=== PATIENT | male | born 1995 | race Caucasian/White ===

== ENCOUNTER 2016-11-25 20:56 | Emergency (ER) | payer SELFPAY ==
[~2016-11-25 20:56] MED LIST: MAGNESIUM PO; PROGRAF PO
--- NOTE | 2016-11-25 21:00 | NUR ---
PATIENT LEFT WITHOUT BEING SEEN BY DR. DE LA ROSA. NO FURTHER CARE PROVIDED FOR PATIENT.
--- NOTE | 2016-11-25 21:00 | NUR ---
Blanquita friedman in [facility] - 11/26/16 at 0235 by SARAH PATIENT LEFT WITHOUT BEING SEEN BY DR. PALMER. NO FURTHER CARE PROVIDED FOR PATIENT.
== END 2016-11-25 21:00 | disposition left against medical advice (07) ==
LOC: MED 20:56
DX: Z53.21 Procedure and treatment not carried out due to patient leaving prior to being seen by health care provider (principal); N50.9 Disorder of male genital organs, unspecified

== ENCOUNTER 2016-12-05 16:39 | Inpatient (IN) | payer MEDICAID ==
[~2016-12-05] VITALS: Ht 182.9 cm; Wt 94.3 kg
[2016-12-05 16:41] VITALS: BP 132/85
--- NOTE | 2016-12-05 16:45 | NUR ---
Patient ambulated to bed 03.
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
--- NOTE | 2016-12-05 17:00 | NUR ---
Dr. Gipson evaluating patient at bedside.
--- NOTE | 2016-12-05 17:10 | NUR ---
XRAY at bedside.
[2016-12-05] MEDS ORDERED: NACL 0.9% 1,000 ML IV ONE ×2 (17:30→19:30)
[2016-12-05] MEDS ORDERED: KETOROLAC 30 MG/ML VIAL IVP ONE (17:30)
[2016-12-05] MEDS ORDERED: ONDANSETRON 4 MG/2 ML VIAL IVP ONE ×2 (17:30→19:05)
[2016-12-05] MEDS ORDERED: ACETYLCYSTEINE 20% (200 MG/ML) 200 MG/ML VIAL PO ONE (18:55)
--- NOTE | 2016-12-05 19:02 | NUR ---
UNABLE TO GIVE REPORT TO JOVANI BRAGG AT THIS TIME COUNTING MEDS
--- NOTE | 2016-12-05 19:15 | NUR ---
UNABLE TO GIVE REPORT AT THIS TIME RN UNAVAILABLE
--- NOTE | 2016-12-05 19:23 | NUR ---
UNABLE TO GIVE REPORT AT THIS TIME RN UNAVAILABLE, CHARGE NURSE NOTIFIED
[2016-12-05] MEDS ORDERED: MORPHINE SULFATE 2 MG/ML SYR IVP PRN (19:30)
[2016-12-05] MEDS ORDERED: ONDANSETRON 4 MG/2 ML VIAL IVP PRN (19:30)
[2016-12-05] MEDS ORDERED: ACETAMINOPHEN 325 MG TAB PO PRN (19:30)
[2016-12-05] MEDS ORDERED: DOCUSATE SODIUM 100 MG GELCAP PO PRN (19:30)
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
--- NOTE | 2016-12-05 19:34 | NUR ---
Patient will be admitted to care of DR DAWN. Admited to TELE. Will go to room 107B. Belongings list completed. Report to JOVANI BRAGG.
[2016-12-05 20:00] VITALS: BP 124/82
--- NOTE | 2016-12-05 21:00 | NUR ---
PT C/O NOT EATING, PER REGULAR DIET GIVEN SANDWICH AND WATER.
--- NOTE | 2016-12-05 21:11 | NUR ---
PT NAUSEATED AND VOMITEDX1, ADMINISTERED MEDICATION PER MD ORDER. FLUIDS ADMINISTERED.
--- NOTE | 2016-12-05 22:00 | NUR ---
IVS REMOVED, CANNULA INTACT. WRISTBANDS REMOVED. PATIENT LEFT UNIT IN STABLE CONDITION.
--- NOTE | 2016-12-06 07:54 | NUR ---
LEFT MESSAGE FOR ESTEVAN AT [facility] THAT PATIENT LEFT AMA. FAXED FACE SHEET AND ER REPORT TO [facility] AT [phone] PHONE ESTEVAN [phone] [id number]
[2016-12-06] MEDS ORDERED: PANTOPRAZOLE 40 MG TABEC PO SCH (09:00)
== END 2016-12-05 22:00 | disposition left against medical advice (07) | DRG 812 ==
LOC: MED 16:39 → MTU 19:31
PROVIDERS: ADMIT Family Medicine; ATTEND Family Medicine
DX: T39.1X1A Poisoning by 4-Aminophenol derivatives, accidental (unintentional), initial encounter (principal); Z94.4 Liver transplant status; Z53.21 Procedure and treatment not carried out due to patient leaving prior to being seen by health care provider; Z79.899 Other long term (current) drug therapy; Y92.89 Other specified places as the place of occurrence of the external cause

== ENCOUNTER 2018-03-13 09:55 | Emergency (ER) | payer MEDICAID ==
[~2018-03-13] VITALS: Ht 182.9 cm; Wt 93.4 kg
[2018-03-13 10:00] VITALS: BP 137/99
--- NOTE | 2018-03-13 10:05 | NUR ---
PT AMBULATES TO BED 7
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
[2018-03-13 10:49] VITALS: BP 137/96
--- NOTE | 2018-03-13 10:49 | NUR ---
Patient discharged with v/s stable. Written and verbal after care instructions given and explained. Patient alert, oriented and verbalized understanding of instructions. Ambulatory with steady gait. All questions addressed prior to discharge. ID band removed. Patient advised to follow up with PMD. Rx of IBUPROFEN 800MG given. Patient educated on indication of medication including possible reaction and side effects. Opportunity to ask questions provided and answered.
== END 2018-03-13 10:49 | disposition home or self-care (01) ==
LOC: MED 09:55
DX: Z48.01 Encounter for change or removal of surgical wound dressing (principal); Z79.899 Other long term (current) drug therapy
CPT/HCPCS: 99283

== ENCOUNTER 2020-09-11 19:25 | Emergency (ER) | payer SELFPAY ==
[~2020-09-11] VITALS: Ht 182.9 cm; Wt 104.3 kg
[2020-09-11 19:36] VITALS: BP 128/93
[2020-09-11] MEDS ORDERED: KETOROLAC 30 MG/ML VIAL IM ONE (20:00)
[2020-09-11] MEDS ORDERED: diazePAM 5 MG TAB PO ONE (20:00)
[2020-09-11 20:45] VITALS: BP 128/93
== END 2020-09-11 20:45 | disposition home or self-care (01) ==
LOC: MED 19:25
DX: M54.5 Low back pain (principal); Z79.899 Other long term (current) drug therapy; Z98.890 Other specified postprocedural states
CPT/HCPCS: 96372; 99283; J1885